=== PATIENT | male | born 1990 | race American Indian/Alaskan Native ===

== ENCOUNTER 2021-09-29 01:01 | Emergency (ER) | payer SELFPAY ==
[2021-09-29 01:09] VITALS: BP 152/101
== END 2021-09-29 03:30 | disposition left against medical advice (07) ==
LOC: ED 01:01
DX: M79.602 Pain in left arm (principal); R07.89 Other chest pain; Z53.21 Procedure and treatment not carried out due to patient leaving prior to being seen by health care provider

== ENCOUNTER 2021-12-26 16:34 | Emergency (ER) | payer SELFPAY ==
[2021-12-26 16:41] VITALS: BP 144/98
[2021-12-26] MEDS ORDERED: traMADol 50 MG TAB PO ONE (20:39)
--- NOTE | 2021-12-26 21:04 | XRay Report ---
RIGHT ANKLE 3 VIEW(S) INDICATION / CLINICAL INFORMATION: fall ankle pain swelling COMPARISON: None available. FINDINGS: BONES / JOINT(S): No acute fracture or subluxation. No significant arthritis. SOFT TISSUES: Soft tissue swelling about the ankle. ADDITIONAL FINDINGS: None. Signer Name: Jeremiah Mares DO Signed: 12/26/2021 8:59 PM Workstation Name: [id number]
--- NOTE | 2021-12-26 21:16 | Emergency Department Report ---
ED Lower Extremity HPI - General Chief Complaint: Extremity Injury, Lower Stated Complaint: FALL Time Seen by Provider: 12/26/21 20:39 Source: patient, EMS Mode of arrival: Ambulatory Limitations: No Limitations - History of Present Illness Initial Comments: Patient 31-year-old male with history of ankle and wrist fracture. States he fell today walking off of a curb twisting his right ankle. Now with pain and swelling rated at 7/10. Pain is exacerbated by weightbearing. Pain is relieved by offloading. Patient is partial weightbearing. There is no numbness or tingling. No obvious deformity. There is moderate swelling to right lateral ankle. Patient arrived via POV and ambulated into ED. There is no abrasion, laceration or bleeding. MD Complaint: ankle injury - Related Data Previous Rx's Medication Instructions Recorded Last Taken Type Acetaminophen/Codeine [Tylenol 1 tab PO Q6H PRN #12 tab 12/26/21 Unknown Rx /Codeine # 3 tab] Naproxen 500 mg PO BID PRN #30 tab 12/26/21 Unknown Rx Allergies Allergy/AdvReac Type Severity Reaction Status Date / Time No Known Allergies Allergy Verified 12/26/21 16:41 ED Review of Systems ROS: Stated complaint: FALL Other details as noted in HPI Constitutional: denies: chills, fever Eyes: denies: eye pain, eye discharge, vision change ENT: denies: ear pain, throat pain Respiratory: denies: cough, shortness of breath, wheezing Cardiovascular: denies: chest pain, palpitations Endocrine: no symptoms reported Gastrointestinal: denies: abdominal pain, nausea, diarrhea Genitourinary: denies: urgency, dysuria Musculoskeletal: joint swelling (Right ankle) Skin: denies: rash, lesions Neurological: denies: headache, weakness, paresthesias Psychiatric: denies: anxiety, depression Hematological/Lymphatic: denies: easy bleeding, easy bruising ED Past Medical Hx - Medications Home Medications: Home Medications Medication Instructions Recorded Confirmed Last Taken Type Acetaminophen/Codeine [Tylenol 1 tab PO Q6H PRN #12 tab 12/26/21 Unknown Rx /Codeine # 3 tab] Naproxen 500 mg PO BID PRN #30 tab 12/26/21 Unknown Rx ED Physical Exam - General Limitations: No Limitations General appearance: alert, in no apparent distress - Head Head exam: Present: normocephalic, normal inspection - Eye Eye exam: Present: EOMI Pupils: Present: normal accommodation - ENT ENT exam: Present: mucous membranes moist - Neck Neck exam: Present: normal inspection, full ROM. Absent: tenderness - Respiratory Respiratory exam: Present: normal lung sounds bilaterally. Absent: respiratory distress, wheezes, chest wall tenderness - Cardiovascular Cardiovascular Exam: Present: regular rate, normal rhythm, normal heart sounds. Absent: systolic murmur, diastolic murmur, rubs, gallop - GI/Abdominal GI/Abdominal exam: Present: soft, normal bowel sounds. Absent: distended, tenderness - Rectal Rectal exam: Present: deferred - Expanded Lower Extremity Exam Right Ankle exam: Present: tenderness, swelling. Absent: abrasion, laceration, ecchymosis, deformity, crepidus, dislocation, erythema, anterior draw sign Foot/Toe exam: Present: full ROM. Absent: tenderness Neuro vascular tendon exam: Absent: pulse deficit, motor deficit, sensory deficit, tendon deficit Gait: Positive: observed and limited by pain - Back Exam Back exam: Present: normal inspection, full ROM. Absent: paraspinal tenderness, vertebral tenderness - Neurological Exam Neurological exam: Present: alert, oriented X3, CN II-XII intact, reflexes normal. Absent: motor sensory deficit - Expanded Neurological Exam Expanded Patient oriented to: Present: person, place, time Speech: Present: fluid speech Sensory exam: Lower Extremity Light Touch: Normal, Lower Extremity Pin Prick: Normal, Lower Extremity Temperature: Normal, LE 2 Point Discrimination: Normal Motor strength exam: RUE: 5, LUE: 5, RLE: 5, LLE: 5 DTR: ankle (R): 1+, ankle (L): 1+ Best Eye Response (Donte): (4) open spontaneously Best Motor Response ([place]): (6) obeys commands Best Verbal Response (Donte): (5) oriented [place] Total: 15 - Psychiatric Psychiatric exam: Present: normal affect, normal mood - Skin Skin exam: Present: warm, dry, intact, normal color. Absent: rash ED Course Vital Signs 12/26/21 16:39 Pulse Rate 94 H Blood Pressure 144/98 [Left] O2 Sat by Pulse 98 Oximetry ED Lower Extremity MDM - Radiology Data Radiology results: report reviewed, image reviewed RIGHT ANKLE 3 VIEW(S) INDICATION / CLINICAL INFORMATION: fall ankle pain swelling COMPARISON: None available. FINDINGS: BONES / JOINT(S): No acute fracture or subluxation. No significant arthritis. SOFT TISSUES: Soft tissue swelling about the ankle. ADDITIONAL FINDINGS: None. Signer Name: Jeremiah Mares DO Signed: 12/26/2021 8:59 PM Workstation Name: [id number] Transcribed By: LAQUITA Dictated By: JEREMIAH MARES DO Electronically Authenticated By: JEREMIAH MARES DO Signed Date/Time: 12/26/212058 DD/ 58 TD/TT: - Medical Decision Making X-ray right ankle no fracture no subluxation no dislocation moderate soft tissue swelling. Plan Rene wrap, crutches, RICE therapy, follow-up with primary care doctor in 2 to 3 days. Patient verbalized agreement understanding of discharge plan. Patient will be DC to home in stable condition at this time. Patient has demonstrated safe use of crutches. Pain is improved. Critical care attestation.: If time is entered above; I have spent that time in minutes in the direct care of this critically ill patient, excluding procedure time. ED Disposition Clinical Impression: Ankle sprain Qualifiers: Encounter type: initial encounter Involved ligament of ankle: unspecified ligament Laterality: right Qualified Code(s): S93.401A - Sprain of unspecified ligament of right ankle, initial encounter Disposition: HOME / SELF CARE / HOMELESS Is pt being admited?: No Does the pt Need Aspirin: No Condition: Stable Instructions: Ankle Sprain, Phase I Rehab-SportsMed, Elastic Bandage and RICE Therapy, Crutch Use, Adult, [id number] Additional Instructions: Take medications as prescribed, rice therapy as directed. Ankle exercises as directed. Follow-up with your doctor in 2 to 3 days. Prescriptions: Naproxen 500 mg PO BID PRN #30 tab PRN Reason: Pain , Severe (7-10) Acetaminophen/Codeine [Tylenol /Codeine # 3 tab] 1 tab PO Q6H PRN #12 tab PRN Reason: severe pain Referrals: MATTHEW BACK MD [Staff Physician] - 3-5 Days LISA GARCIA MD [Staff Physician] - 3-5 Days Forms: Work/School Release Form(ED) Time of Disposition: 21:19
== END 2021-12-26 21:43 | disposition home or self-care (01) ==
LOC: ED 16:34
DX: S93.401A Sprain of unspecified ligament of right ankle, initial encounter (principal); X58.XXXA Exposure to other specified factors, initial encounter; Y93.89 Activity, other specified; Y92.89 Other specified places as the place of occurrence of the external cause; Y99.8 Other external cause status
CPT/HCPCS: 99284